=== PATIENT | female | born 1975 | race Two or more races ===

== ENCOUNTER 2020-02-08 14:40 | Emergency (ER) | payer MEDICAID ==
[2020-02-08 15:21] LABS: CHLORIDE,CL 101 mEq/L (98-106); SODIUM,NA 139 mEq/L (136-145)
--- NOTE | 2020-02-08 15:22 | EDM.PDOC ---
ED HPI GENERAL MEDICAL PROBLEM - General Chief Complaint: General Stated Complaint: sob, cough, congestion, diarrhea Time Seen by Provider: 02/08/20 15:15 Source of Information: Reports: Patient History Limitations: Reports: No Limitations - History of Present Illness INITIAL COMMENTS - FREE TEXT/NARRATIVE: Corinne is a 44 yo female who presents to the ED with c/o sinus congestion, cough, and diarrhea for the past few days. She reports she is SOB with exertion and lying down, but this is her baseline. Also reports she had body aches the last few days as well. Does have some chest pain with coughing. She reports she feels drainage down her throat and coughs up thick white sputum at times. Was supposed to see Dr. Rowe today to establish care but she wishes to get a covid test. Associated Symptoms: Reports: Cough, cough w sputum, Shortness of Breath. Denies: Confusion, Chest Pain, Diaphoresis, Fever/Chills, Loss of Appetite, Nausea/Vomiting Bilateral Shoulder Pain Score (Numeric/FACES): 5 - Related Data Allergies Allergy/AdvReac Type Severity Reaction Status Date / Time No Known Allergies Allergy Verified 02/08/20 15:03 Home Meds: Home Meds Acetaminophen [Tylenol Extra Strength] 1,000 mg PO QAM 02/08/20 [History] Acetaminophen [Tylenol Extra Strength] 1,500 mg PO ASDIRECTED 02/08/20 [History] Cyclobenzaprine [Flexeril] 5 mg PO ASDIRECTED PRN 02/08/20 [History] DULoxetine [Cymbalta] 30 mg PO DAILY 02/08/20 [History] DULoxetine [Cymbalta] 60 mg PO QPM 02/08/20 [History] Gabapentin [Neurontin] 1,200 mg PO TID 02/08/20 [History] Losartan [Cozaar] 25 mg PO DAILY 02/08/20 [History] Promethazine HCl/Codeine [Promethazine-Codeine Syrup] 10 ml PO Q8H PRN #240 ml 02/08/20 [Rx] atorvaSTATin [Lipitor] 10 mg PO BEDTIME 02/08/20 [History] cloNIDine [Catapres] 0.2 mg PO DAILY 02/08/20 [History] hydrOXYzine HCL [hydrOXYzine] 50 mg PO ASDIRECTED PRN 02/08/20 [History] Social & Family History - Tobacco Use Tobacco Use Status *Q: Current Every Day Tobacco User Years of Tobacco use: 33 Packs/Tins Daily: 1 - Caffeine Use Caffeine Use: Reports: Coffee, Soda - Recreational Drug Use Recreational Drug Use: No ED ROS GENERAL - Review of Systems Review Of Systems: Comprehensive ROS is negative, except as noted in HPI. ED EXAM, GENERAL - Physical Exam Exam: See Below Exam Limited By: No Limitations General Appearance: Alert, WD/WN, No Apparent Distress Eye Exam: Bilateral Eye: EOMI, Normal Fundi, Normal Inspection, PERRL Ears: Normal External Exam, Normal Canal, Hearing Grossly Normal, Normal TMs Nose: Nasal Swelling, Clear Rhinorrhea Throat/Mouth: Normal Inspection, Normal Lips, Normal Teeth, Normal Gums, Normal Oropharynx, Normal Voice, No Airway Compromise, Other (post nasal drainage) Head: Atraumatic, Normocephalic Neck: Normal Inspection, Supple, Non-Tender, Full Range of Motion Respiratory/Chest: No Respiratory Distress, Lungs Clear, Normal Breath Sounds, No Accessory Muscle Use, Chest Non-Tender Cardiovascular: Normal Peripheral Pulses, Regular Rate, Rhythm, No Edema, No Gallop, No JVD, No Murmur, No Rub GI/Abdominal: Normal Bowel Sounds, Soft, Non-Tender, No Organomegaly, No Distention, No Abnormal Bruit, No Mass Extremities: Normal Inspection, Normal Range of Motion, Non-Tender, Normal Capillary Refill, No Pedal Edema Neurological: Alert, Oriented, CN II-XII Intact, Normal Cognition, Normal Gait, Normal Reflexes, No Motor/Sensory Deficits Psychiatric: Normal Affect, Normal Mood Skin Exam: Warm, Dry, Intact, Normal Color, No Rash Lymphatic: No Adenopathy Course - Vital Signs Last Recorded V/S: Last Vital Signs Temp 96.3 F L 02/08/20 15:00 Pulse 87 02/08/20 15:54 Resp 20 02/08/20 15:00 BP 127/70 02/08/20 15:54 Pulse Ox 98 02/08/20 15:00 - Orders/Labs/Meds Labs: Laboratory Tests 02/08/20 02/08/20 02/08/20 Range/Units 15:01 15:01 15:01 WBC 12.9 H (5.0-10.0) 10^3/uL RBC 5.08 (4.00-5.50) 10^6/uL Hgb 14.4 (12.0-16.0) g/dL Hct 46.2 (37.0-47.0) % MCV 90.9 (82.0-94.0) fL MCH 28.3 (27.0-32.0) pg MCHC 31.2 L (33.0-38.0) g/dL RDW Coeff of Nathan 14.0 (11.0-15.0) % Plt Count 356 (150-400) 10^3/uL Neut % (Auto) 57.2 (35-85) % Lymph % (Auto) 34.7 (10-55) % Yell % (Auto) 5.7 (0-16) % Eos % (Auto) 2.1 (0-5) % Baso % (Auto) 0.3 (0-3) % Neut # (Auto) 7.35 H (1.80-7.00) 10^3/uL Lymph # (Auto) 4.46 (1.00-4.80) 10^3/uL Yell # (Auto) 0.73 (0.00-0.80) 10^3/uL Eos # (Auto) 0.27 (0.00-0.45) 10^3/uL Baso # (Auto) 0.04 10^3/uL Sodium 139 (136-145) mEq/L Potassium 4.3 (3.5-5.0) mEq/L Chloride 101 (98-106) mEq/L Carbon Dioxide 26 (21-32) mmol/L BUN 9 (7-18) mg/dL Creatinine 0.8 (0.6-1.0) mg/dL Est Cr Clr Drug Dosing 82.43 mL/min Estimated GFR (MDRD) > 60 (>=60) mL/min Glucose 151 H (75-99) mg/dL Calcium 9.0 (8.4-10.1) mg/dL Total Bilirubin 0.3 (0.0-1.0) mg/dL AST 25 (15-37) U/L ALT 23 (12-78) U/L Alkaline Phosphatase 132 H (46-116) U/L Creatine Kinase 71 (21-215) U/L Troponin I (0.00-0.06) ng/mL C-Reactive Protein 4.4 H (0.2-0.8) mg/dL Total Protein 8.7 H (6.4-8.2) g/dL Albumin 3.3 L (3.4-5.0) g/dL SARS CoV-2 RNA Rapid DAGO Negative (NEGATIVE) 02/08/20 Range/Units 15:22 WBC (5.0-10.0) 10^3/uL RBC (4.00-5.50) 10^6/uL Hgb (12.0-16.0) g/dL Hct (37.0-47.0) % MCV (82.0-94.0) fL MCH (27.0-32.0) pg MCHC (33.0-38.0) g/dL RDW Coeff of Nathan (11.0-15.0) % Plt Count (150-400) 10^3/uL Neut % (Auto) (35-85) % Lymph % (Auto) (10-55) % Yell % (Auto) (0-16) % Eos % (Auto) (0-5) % Baso % (Auto) (0-3) % Neut # (Auto) (1.80-7.00) 10^3/uL Lymph # (Auto) (1.00-4.80) 10^3/uL Yell # (Auto) (0.00-0.80) 10^3/uL Eos # (Auto) (0.00-0.45) 10^3/uL Baso # (Auto) 10^3/uL Sodium (136-145) mEq/L Potassium (3.5-5.0) mEq/L Chloride (98-106) mEq/L Carbon Dioxide (21-32) mmol/L BUN (7-18) mg/dL Creatinine (0.6-1.0) mg/dL Est Cr Clr Drug Dosing mL/min Estimated GFR (MDRD) (>=60) mL/min Glucose (75-99) mg/dL Calcium (8.4-10.1) mg/dL Total Bilirubin (0.0-1.0) mg/dL AST (15-37) U/L ALT (12-78) U/L Alkaline Phosphatase (46-116) U/L Creatine Kinase (21-215) U/L Troponin I < 0.017 (0.00-0.06) ng/mL C-Reactive Protein (0.2-0.8) mg/dL Total Protein (6.4-8.2) g/dL Albumin (3.4-5.0) g/dL SARS CoV-2 RNA Rapid DAGO (NEGATIVE) Departure - Departure Time of Disposition: 15:57 Disposition: Home, Self-Care 01 Condition: Fair Clinical Impression: Viral URI with cough - Discharge Information *PRESCRIPTION DRUG MONITORING PROGRAM REVIEWED*: Not Applicable *COPY OF PRESCRIPTION DRUG MONITORING REPORT IN PATIENT DOUG: Not Applicable Prescriptions: Promethazine HCl/Codeine [Promethazine-Codeine Syrup] 10 ml PO Q8H PRN #240 ml PRN Reason: Cough Instructions: Viral Respiratory Infection, [id number] Referrals: Benjamin Rowe MD [Primary Care Provider] - Forms: ED Department Discharge Additional Instructions: - Rest and push fluids - Recommend quarantine until symptoms improve - Routine decongestants as needed (Mucinex DM twice daily) - Cough syrup Promethazine-Codeine 10 mL PO every 8 hours as needed for cough - Follow up for any worsening symptoms or developing shortness of breath - Reschedule appointment once symptoms resolve to establish care with Dr. Rowe Sepsis Event Note (ED) - Evaluation Sepsis Screening Result: Possible Sepsis Risk - Problem List & Annotations (1) Viral URI with cough SNOMED Code(s): 445803573, 783558121 Code(s): J06.9 - ACUTE UPPER RESPIRATORY INFECTION, UNSPECIFIED Status: Acute - Problem List Review Problem List Initiated/Reviewed/Updated: Yes - Assessment/Plan Assessment:: Virual URI with cough Plan: As above. Please see nurses notes for PMH, PSH, SH, and FH.
== END 2020-02-08 16:12 | disposition home or self-care (01) ==
LOC: CC.ED 14:40
DX: J06.9 Acute upper respiratory infection, unspecified (principal); F17.210 Nicotine dependence, cigarettes, uncomplicated; Z20.828 Contact with and (suspected) exposure to other viral communicable diseases
CPT/HCPCS: 36415; 80053; 82550; 84484; 85025; 86140; 93005; 99284-25; U0002